=== PATIENT | male | born 1970 | race African-American/Black ===

== ENCOUNTER 2019-06-14 20:32 | Emergency (ER) | payer MEDICARE, MEDICAID ==
[~2019-06-14] VITALS: Ht 180.3 cm; Wt 120.2 kg
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
[2019-06-14] MEDS ORDERED: MORPHINE SULFATE 10 MG/ML VIAL. IM ONE (23:00)
[2019-06-14] MEDS ORDERED: ORPHENADRINE CITRATE 60 MG/2 ML VIAL. IM ONE (23:00)
[2019-06-14 23:43] VITALS: BP 140/72
[2019-06-14] MEDS ORDERED: ORPH100T PO (23:53)
[2019-06-14] MEDS ORDERED: HYDR-3164 PO (23:53)
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
== END 2019-06-15 00:06 | disposition home or self-care (01) ==
LOC: ER 20:32
DX: G89.29 Other chronic pain (principal); M54.5 Low back pain; M25.561 Pain in right knee; M25.562 Pain in left knee; E78.00 Pure hypercholesterolemia, unspecified; Z98.890 Other specified postprocedural states
CPT/HCPCS: 96372; 99284; J2270; J2360

== ENCOUNTER 2019-06-17 12:45 | Emergency (ER) | payer MEDICARE, MEDICAID ==
[~2019-06-17] VITALS: Ht 180.3 cm; Wt 120.2 kg
[~2019-06-17 12:45] MED LIST: HYDR-3164 PO; ORPH100T PO
[2019-06-17 14:10] VITALS: BP 143/71
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
[2019-06-17] MEDS ORDERED: MORPHINE SULFATE 4 MG/ML VIAL. IM ONE (16:00)
[2019-06-17] MEDS ORDERED: ORPHENADRINE CITRATE 60 MG/2 ML VIAL. IM ONE (16:00)
== END 2019-06-17 16:30 | disposition home or self-care (01) ==
LOC: ER 12:45
DX: G89.29 Other chronic pain (principal); M25.511 Pain in right shoulder; M25.512 Pain in left shoulder; M25.561 Pain in right knee; M25.562 Pain in left knee; M54.2 Cervicalgia; R20.2 Paresthesia of skin; E78.00 Pure hypercholesterolemia, unspecified
CPT/HCPCS: 96372; 99284; J2270; J2360